=== PATIENT | male | born 1970 | race Caucasian/White ===

== ENCOUNTER 2020-09-08 21:11 | Inpatient (IN) | payer BC ==
[~2020-09-08] VITALS: Ht 188 cm; Wt 90.7 kg
[2020-09-08 22:18] LABS: HEMOGLOBIN 17.2 gm/dl (14.0-17.5); RED BLOOD COUNT 5.62 M/UL (4.20-5.50); WHITE BLOOD COUNT 26.5 K/UL (4.5-11.0)
[2020-09-09] MEDS ORDERED: SYNTHROID 137137 MCG PO (00:56)
[2020-09-09] MEDS ORDERED: FARXIGA10 MG PO (00:56)
[2020-09-09] MEDS ORDERED: FAMOTIDINE40 MG PO (00:56)
[2020-09-09] MEDS ORDERED: ZYRTEC10 MG PO (00:57)
[2020-09-09] MEDS ORDERED: LISINOPRIL10 MG PO (00:57)
[2020-09-09] MEDS ORDERED: ZOLOFT25 MG PO (00:58)
[2020-09-09] MEDS ORDERED: ASPIRIN81 MG PO (00:58)
[2020-09-09] MEDS ORDERED: OMEPRAZOLE40 MG PO (01:01)
[2020-09-09 05:20] LABS: HEMOGLOBIN 15.7 gm/dl (14.0-17.5); RED BLOOD COUNT 5.21 M/UL (4.20-5.50)
[2020-09-09 12:55] LABS: BUN/CREATININE RATIO 36 (0-10)
[2020-09-09 16:41] LABS: BUN/CREATININE RATIO 31 (0-10)
[2020-09-09 19:52] LABS: BUN/CREATININE RATIO 34 (0-10)
[2020-09-10 05:19] LABS: HEMOGLOBIN 13.1 gm/dl (14.0-17.5); RED BLOOD COUNT 4.43 M/UL (4.20-5.50)
[2020-09-10 05:39] LABS: BUN/CREATININE RATIO 28 (0-10)
== END 2020-09-10 16:41 | disposition home or self-care (01) | DRG 637 ==
LOC: ER1 21:11 → 2 EAST 09-09 00:28 → CDU 09-09 00:28 → 2 EAST 09-09 03:11
PROVIDERS: Internal Medicine Infectious Disease; Physician Assistant; Physician Assistant Medical; ADMIT Internal Medicine
DX: E11.10 Type 2 diabetes mellitus with ketoacidosis without coma (principal); R65.11 Systemic inflammatory response syndrome (SIRS) of non-infectious origin with acute organ dysfunction; N17.9 Acute kidney failure, unspecified; Z79.4 Long term (current) use of insulin; Z20.822 Contact with and (suspected) exposure to COVID-19; E03.9 Hypothyroidism, unspecified; Z88.0 Allergy status to penicillin; G47.30 Sleep apnea, unspecified; K52.9 Noninfective gastroenteritis and colitis, unspecified; D72.829 Elevated white blood cell count, unspecified; E86.0 Dehydration; E87.6 Hypokalemia; G47.33 Obstructive sleep apnea (adult) (pediatric); I10 Essential (primary) hypertension
CPT/HCPCS: 36415; 71045; 80048; 80053; 81001; 82009; 82150; 82800; 82803; 82962; 83036; 83605; 83690; 84484; 85025; 93005; 94760; 96365; 96368; 96375; 96376; 99285; C9113; J1650; J1956; J2270; J2405; J7030; Q9967; U0002